=== PATIENT | male | born 1980 | race African-American/Black ===

== ENCOUNTER 2017-02-01 22:00 | Emergency (ER) | payer OTHER ==
[~2017-02-01] VITALS: Ht 182.9 cm; Wt 158.8 kg
[~2017-02-01 22:00] MED LIST: IBUPROFEN 600600 M1 PO; PAIN & FEVER500 MG
[2017-02-01] MEDS ORDERED: IBUPROFEN 800800 MG PO (23:08)
[2017-02-01] MEDS ORDERED: NORCO 5-325 TA1 EACH PO (23:08)
== END 2017-02-01 23:36 | disposition home or self-care (01) ==
LOC: ER 22:00
DX: S93.402A Sprain of unspecified ligament of left ankle, initial encounter (principal); W10.9XXA Fall (on) (from) unspecified stairs and steps, initial encounter; Y93.89 Activity, other specified; Y92.89 Other specified places as the place of occurrence of the external cause; Y99.8 Other external cause status

== ENCOUNTER → 2017-03-01 | Outpatient (CLI) | payer OTHER ==
[~2017-03-01] MED LIST changes: +IBUPROFEN 800800 MG PO; +NORCO 5-325 TA1 EACH PO
== END ==
LOC: RAD 11:02
DX: S93.492D Sprain of other ligament of left ankle, subsequent encounter (principal); M19.072 Primary osteoarthritis, left ankle and foot; X58.XXXD Exposure to other specified factors, subsequent encounter